=== PATIENT | male | born 1990 | race Caucasian/White ===

== ENCOUNTER 2018-08-25 19:44 | Emergency (ER) | payer BC ==
[2018-08-25] MEDS ORDERED: Ondansetron PF 4 MG/2 ML Vial ONE ×2 (20:14→21:29)
== END 2018-08-25 23:15 | disposition home or self-care (01) ==
LOC: SCSER 19:44
DX: R11.2 Nausea with vomiting, unspecified (principal); R19.7 Diarrhea, unspecified
CPT/HCPCS: 96361; 96374; 96376; J2405